=== PATIENT | female | born 1950 | race Caucasian/White ===

== ENCOUNTER → 2018-11-11 | Day surgery (SDC) | payer MEDICARE, BC ==
[~2018-11-11] MED LIST: 0.9 % SODIUM CHLORIDE 10 ML VIAL IVP ONE; ACETAMINOPHEN 1,000 MG/100 ML BTL IV ONE; BUPIVACAINE 0.5% W/EPI MPF 30 ML VIAL IVP ONE; CEFAZOLIN 1G VIAL IM ONE; CEFAZOLIN 2 Gram 2 GM/50 ML BAG IVPB ONE; FAMOTIDINE 20MG TABLET PO ONE; FENTANYL PF 100MCG/2ML VIAL IV ONE; KETOROLAC 30 MG/ML VIAL IVP ONE; LIDOCAINE 1% W/EPI 1:200,000 MPF 30ML SQ ONE; LIDOCAINE 2% MDV (20MG/ML) 20ML VIAL IV ONE; MECLIZINE 25 MG TABLET PO ONE; METOCLOPRAMIDE 10 MG TABLET PO ONE; MIDAZOLAM HCL 2MG/2ML VIAL IV ONE; PROPOFOL 10 MG/ML VIAL IV ONE; VANCOMYCIN HCL 1,000 MG in 0.9 % SODIUM CHLORIDE 250ML 250 ML IVPB ONE
--- NOTE | 2018-11-11 06:10 | History and Physical - [place] ---
CHIEF COMPLAINT/HISTORY OF CHIEF COMPLAINT: This patient with a history of intractable lumbar radiculopathy had a spinal cord stimulator implant on . Despite the early success the procedure became somewhat troublesome for the patient having problems with reprogramming and recharging. It appeared that part of the issue became the generator at the posterior gluteal margin, it was a painful site for the patient and it disrupted sleep patterns. Although we gave the patient a number of options to relocate the generator, she opted to have the system removed. PAST MEDICAL HISTORY: Hypertension. PAST SURGICAL HISTORY: Gastric bypass, knee surgery, knee replacement, hysterectomy, bladder surgery, and stimulator implant. MEDICATIONS ON ADMISSION: List to be provided. ALLERGIES: MORPHINE AND LISINOPRIL. FAMILY/PSYCHOSOCIAL HISTORY: Social history - Caffeine. Family history - Cancer. SYSTEMS REVIEW: The patient is appropriate in no acute distress. The remainder of the systems review is positive for glasses, dentures, blood pressure problems, bladder dysfunction, degenerative arthritis, fibromyalgia, depression, and difficulty sleeping. PHYSICAL EXAMINATION: Height is 4'11", weight is 110 pounds. No vital signs. HEENT: Within normal limits. LUNGS: Clear. HEART: Rapid and regular. ABDOMEN: Nontender. MUSCULOSKELETAL: Examination of the musculoskeletal system shows the generator incision at the right posterior gluteal margin. Midline incision for the leads. Both incisions are noted and intact. NEUROLOGIC: Cranial nerves are intact. Primary pain pattern low back and lower extremity. IMPRESSION: 1. LUMBAR RADICULOPATHY, ICD-10 CODE M54.16 AND M54.17. 2. SPINAL CORD STIMULATOR INTERNAL GENERATOR. PLAN: The patient is here for removal of the stimulator and generator on an outpatient basis. The risks, side effects, and complications have been reviewed and discussed. JOB NUMBER: [id number] [facility]
--- NOTE | 2018-11-13 16:05 | Operative Note ---
DATE: 11/11/2018. PRIMARY CARE PHYSICIAN: Devin Wynn M.D. PREOPERATIVE DIAGNOSIS: 1. LUMBAR RADICULOPATHY, ICD-10 CODE M54.16 AND M54.17. 2. SPINAL CORD STIMULATOR INTERNAL GENERATOR NONFUNCTIONAL. PROCEDURES: 1. Fluoroscopically guided incision, subcutaneous dissection, and removal of two indwelling spinal cord stimulators. 2. Incision, subcutaneous dissection, and removal of single internal pulse generator. SURGEON: Jaime hZou D.O. ANESTHESIA: Local sedation. ANESTHESIA PROVIDER: Angelic Bain CRNA. INDICATIONS: This patient presents with a history of intractable lumbar radiculopathy managed by a spinal cord stimulator and internal generator. Over the last one to two years, the patient has been complaining of pain at the posterior gluteal margin generator site. Multiple attempts at desensitizing the area have failed. The options were to relocate the generator or remove the system, and she opted to remove the system. DESCRIPTION OF PROCEDURE: Intravenous line, vital sign monitoring, and intravenous sedation. Prepped and draped with sterile technique. Under imaging midline incision for the two leads was identified. The skin was infiltrated, an incision was made, and subcutaneous dissection was conducted to the anchors. The sutures were removed and the anchors were removed. The two leads were then removed intact. At the right posterior gluteal margin generator pouch, the skin was infiltrated. An incision was made and subcutaneous dissection was conducted to the generator pouch which was opened. The generator and the lead extensions were removed intact. Topical antibiotic and sterile dressings were applied. We imaged to ensure that all components were removed. The incisions were then closed using Stratafix suture; #2-0 for the fascia and # 3-0 for the skin. Dermabond closure was then used to approximate the edges of the wound. She was then transported to the recovery room stable with no side effects from the procedure or the sedation. When fully awake and alert, she was prepared for discharge. DISCHARGE INSTRUCTIONS: 1. The sites are to remain clean and dry. No showering or bathing in any way that would disrupt dressings. If this happens, contact the clinic. 2. Standard medications to be resumed including the antibiotic Bactrim-DS. She will take one twice a day for 10 days. 3. She will be seen in the office to evaluate the sites. Until then, she is to keep her activities low and limit bend, lift, push, and pull. 4. All other instructions were provided including numbers to contact with problems. She will contact the office if she has problems. JOB NUMBER: [id number] cc: Devin Wynn M.D. KIKI
--- NOTE | 2018-11-13 16:22 | Operative Note ---
DATE: 11/11/2018. PRIMARY CARE PHYSICIAN: Devin Wynn M.D. PREOPERATIVE DIAGNOSIS: 1. POSTLUMBAR LAMINECTOMY SYNDROME, ICD-10 CODE M96.1. 2. RADICULOPATHY, ICD-10 CODE M54.16 AND M54.17. 3. TWO-LEAD SPINAL CORD IMPLANTED STIMULATOR WITH INTERNAL GENERATOR NONFUNCTIONAL. PROCEDURES: 1. Fluoroscopically guided incision, subcutaneous dissection, and removal of two implanted spinal cord stimulators. 2. Incision, subcutaneous dissection, and removal of internal pulse generator at the left posterosuperior gluteal margin. 3. Fluoroscopically guided epidural access at left T11-12. Placement of spinal cord stimulator lead 1, a [employer] Infineon 16 with 16 electrodes, positioned left T7. 4. Fluoroscopically guided epidural access at left T12-L-1. Placement of spinal cord stimulator lead 2, a [employer] Infineon 16 with 16 electrodes, positioned right T7. 5. Complex programming of lead 1 over 20 minutes followed by complex programming of lead 2 over 20 minutes. 6. Incision with revision of midline incisional site and pouch for placement of leads and anchors. 7. Securing of leads 1 and 2 to supraspinous fascia using a [employer] locking anchor. 8. Revision of left posterior gluteal margin pouch for placement of generator identified as a [employer] programmable rechargeable WaveWriter generator. 9. Tunnelling between lead pouches into generator pouch. Placement of each lead into generator pouch. Each lead interfaced to the generator. 10. Closure of both incisions using Stratafix suture; #2-0 for the fascia and # 3-0 for the skin. Dermabond closure. 11. Complex recovery room programming of the internal generator for home use, two stimulators, for 20 minutes. SURGEON: Jaime Zhou D.O. ANESTHESIA: Local sedation. ANESTHESIA PROVIDER: Angelic Bain CRNA. INDICATIONS: This patient presents with a history of intractable postlumbar laminectomy radiculopathy. A number of years previous, a [employer] spinal cord stimulator eight-electrode system with generator was placed for pain control. Although early on the system appeared to be working, subsequently there was no functionality and loss of pain control. She was given the options to remove or remove and replace with a [employer] system. She opted to remove the [employer] system and replace with a [employer] system. DESCRIPTION OF PROCEDURE: The patient was positioned on the operating table prone. Sterile prep and sterile technique. Sedation was administered by Anesthesia. Under imaging the previously placed incision from T11 through L1 was infiltrated. An incision was made and subcutaneous dissection was conducted to the two leads and their anchors. The anchors were released and the sutures were removed. The leads were removed using epidural access at 11- 12 and 12-1 on the left side. Two [employer] 16-electrode leads were positioned; one was positioned at T11-12 and the other was inserted at 12-1. They were advanced and positioned left of the midline at T7 as well as right of the midline at T7. A separate 16-electrode lead was placed left and a separate 16-electrode lead was placed right. Complex programming was performed over 20 minutes establishing stimulation of pain control to all of the appropriate areas. The patient was given the options to implant this system or remove. She opted to implant. She was re-sedated. The incision was then widened to accommodate the new leads and anchors. The needles were removed, and then each lead was anchored to the supraspinous fascia with a [employer] locking anchor and nonabsorbable suture. The left posterior gluteal margin pouch for the previous generator was infiltrated. An incision was made and subcutaneous dissection was conducted to the generator pouch. The generator was exteriorized and was removed with its connections. Antibiotic irrigation and Bovie for hemostasis. The generator pouch was then widened and revised to accommodate the [employer] programmable rechargeable WaveWriter generator. A tunneling tool was used to carry the two leads into the generator pouch, and then each lead was interfaced to the generator. The generator and its connections were placed into the pouch. The leads were placed into their own pouch. All incisions were then closed using Stratafix suture; #2-0 for the fascia and #3-0 for the skin. Dermabond closure was then used to approximate the edges of both wounds. She was then transported to the recovery room stable with no side effects from the procedure or the sedation. When awake and alert, complex programming of the internal generator was performed over 20 minutes establishing pain control. She requested to be discharged home. DISCHARGE INSTRUCTIONS: 1. The sites are to remain clean and dry. No showering or bathing in any way that would disrupt dressings. If this happens, contact the clinic. 2. Standard medications to be resumed including the antibiotic Levaquin 500 mg once a day for 14 days. 3. The office will contact the patient at home to set up an appointment within the next seven to ten days to evaluate the sites. Until then activities should stay low and controlled. 4. All other instructions were provided including numbers to contact with problems. She will be discharged. JOB NUMBER: [id number] cc: MTDD
== END | disposition home or self-care (01) ==
LOC: SUR 10:57
PROVIDERS: ATTEND Pain Medicine Interventional Pain Medicine
DX: M54.16 Radiculopathy, lumbar region (principal); M54.17 Radiculopathy, lumbosacral region; M06.9 Rheumatoid arthritis, unspecified; K21.9 Gastro-esophageal reflux disease without esophagitis; G62.9 Polyneuropathy, unspecified
CPT/HCPCS: J0690; J1885; J7050